=== PATIENT | female | born 1995 | race Two or more races ===

== ENCOUNTER 2024-01-08 12:38 | Inpatient (IN) | payer BC ==
[2024-01-14] MEDS: Lactated Ringer's 1,000 ML IV SCH (08:05)
[2024-01-14] MEDS ORDERED: hydrALAZINE 20 MG/ML VIAL SLOW IVP PRN ×2 (08:42→17:17)
[2024-01-14] MEDS ORDERED: fentaNYL 50 mcg/mL 1 mL Vial SLOW IVP PRN (08:42)
[2024-01-14] MEDS ORDERED: Methylergonovine 0.2 MG/ML VIAL IM PRN (08:42)
[2024-01-14] MEDS ORDERED: Oxytocin 30 units/NS 500 ML 500 ML IV SCH (08:42)
[2024-01-14] MEDS ORDERED: Ibuprofen 800 MG TAB PO PRN (08:42)
[2024-01-14] MEDS ORDERED: Ondansetron PF 4 MG/2 ML Vial IVP PRN ×2 (08:42→17:17)
[2024-01-14] MEDS ORDERED: Acetaminophen 500 MG TAB PO PRN (08:42)
[2024-01-14] MEDS ORDERED: HYDROcodone/Acetaminophen 5/325 mg Tablet PO PRN ×2 (08:42→17:17)
[2024-01-14] MEDS ORDERED: Carboprost 250 MCG/ML AMP IM PRN (08:42)
[2024-01-14] MEDS ORDERED: Misoprostol 200 MCG TAB PR PRN (08:42)
[2024-01-14] MEDS ORDERED: Diphenoxylate HCl/Atropine Tablet PO PRN (08:42)
[2024-01-14] MEDS ORDERED: Promethazine HCl 25 MG/ML VIAL IM PRN ×2 (08:42→17:17)
[2024-01-14 08:44] VITALS: BMI 27.9
[2024-01-14 09:12] LABS: Hematocrit 38.6 % (34.9-44.5); Hemoglobin 12.9 g/dL (12.0-15.5); Mean Corpuscular HGB CONC 33.4 g/dL (32.0-36.0); Mean Corpuscular Hemoglobin 30.6 pg (27.0-33.0); Mean Corpuscular Volume 91.7 fL (81.6-98.3); Mean Platelet Volume 9.4 fL (7.4-10.4); Platelet Count 152 10x3/uL (150-450); RBC Distribution Width 11.7 % (11.5-14.5); Red Blood Cell (RBC) Count 4.21 10x6/uL (3.90-5.03); White Blood Cell (WBC) Count 7.9 10x3/uL (3.5-10.5)
[2024-01-14] MEDS: Oxytocin 30 units/NS 500 ML 500 ML IV SCH (09:32)
[2024-01-14 11:05] LABS: HBsAg Index 0.26 S/CO (0-0.99); Hep B Surf Ag - L&D Non-Reactive S/CO (NonReactive)
[2024-01-14 12:18] LABS: Syphilis Antibody INDETERMINATE (Nonreactive)
[2024-01-14 12:19] LABS: Syphilis Antibody Index 1.09 S/CO (<1.00 Non-Reactive)
[2024-01-14 12:24] LABS: Syphilis Titer Non-Reactive Titer (Negative)
[2024-01-14] MEDS: Lidocaine 1% (PF) 30 ML VIAL SC PRN (13:46)
[2024-01-14] MEDS ORDERED: Milk Of Magnesia 30 ML UDCUP PO PRN (17:17)
[2024-01-14] MEDS ORDERED: Lanolin Ointment 7 GM TUBE TOP PRN (17:17)
[2024-01-14] MEDS ORDERED: diphenhydrAMINE 25 MG CAP PO PRN (17:17)
[2024-01-14] MEDS ORDERED: Preparation H Ointment 28 GM TUBE PR PRN (17:17)
[2024-01-14] MEDS ORDERED: Bisacodyl 10 MG SUPP PR PRN (17:17)
[2024-01-14] MEDS: Boostrix 0.5 ML (Tdap) VIAL (>/=7 yrs of age) IM ONE (17:49)
[2024-01-14] MEDS: Docusate 100 MG CAP PO SCH (19:39)
[2024-01-14] MEDS: Benzocaine-Menthol 82.5 ML CAN TOP PRN (19:39)
[2024-01-14] MEDS: Ibuprofen 800 MG TAB PO SCH (21:38)
[2024-01-15] MEDS: HYDROcodone/Acetaminophen 5/325 mg Tablet PO PRN (03:47)
[2024-01-15] MEDS: Ferrous Sulfate 325 MG TAB PO SCH (07:09)
[2024-01-15 07:59] VITALS: BP 109/72; TEMP 98
[2024-01-15] MEDS: Prenatal Vitamin 1 TAB PO SCH (08:39)
== END 2024-01-15 17:50 | disposition home or self-care (01) | DRG 807 ==
LOC: CSHLD 01-14 06:41 → CSHPED 01-14 16:15
PROVIDERS: ADMIT Student in an Organized Health Care Education/Training Program; ATTEND Student in an Organized Health Care Education/Training Program
PROC: 10E0XZZ Delivery of Products of Conception, External Approach (ICD-10-PCS; principal; 2024-01-14)
PROC: 0HQ9XZZ Repair Perineum Skin, External Approach (ICD-10-PCS; 2024-01-14)
PROC: 10907ZC Drainage of Amniotic Fluid, Therapeutic from Products of Conception, Via Natural or Artificial Opening (ICD-10-PCS; 2024-01-14)
DX: O70.0 First degree perineal laceration during delivery (principal); Z37.0 Single live birth; O48.0 Post-term pregnancy; Z3A.40 40 weeks gestation of pregnancy
CPT/HCPCS: 36415; 85027; 86593; 86780; 86850; 86900; 86901; 87340; J2001; J2590; J7120